=== PATIENT | male | born 1990 | race Caucasian/White ===

== ENCOUNTER 2022-12-13 15:59 | Emergency (ER) | payer OTHER ==
[~2022-12-13] VITALS: Ht 175.3 cm; Wt 90.7 kg
[~2022-12-13 15:59] MED LIST: AMPDEX15CR
[2022-12-13] MEDS ORDERED: CYCL10 PO (16:21)
[2022-12-13] MEDS ORDERED: LIDOCAINE1 EACH TOP (16:22)
== END 2022-12-13 16:33 | disposition home or self-care (01) ==
LOC: ER 15:59
DX: M62.830 Muscle spasm of back (principal); F17.200 Nicotine dependence, unspecified, uncomplicated
CPT/HCPCS: J1885